=== PATIENT | male | born 1940 | race American Indian/Alaskan Native ===

== ENCOUNTER 2017-02-05 12:26 | Emergency (ER) | payer MEDICARE, BC ==
[2017-02-05] MEDS ORDERED: Albuterol/Ipratropium 3.0-0.5 MG/3 ML Neb Soln NEB ONE (12:31)
[2017-02-05] MEDS ORDERED: methylPREDNISolone Sodium Succinate 125 MG/2 ML SDV IVPUSH ONE (12:31)
[2017-02-05] MEDS ORDERED: Sodium Chloride 0.9% 10 ML Syringe FLUSH PRN (12:31)
[2017-02-05 12:34] VITALS: BP 124/71
[2017-02-05] MEDS ORDERED: Piperacillin/Tazobactam 3.375 GM in Sodium Chloride 0.9% 100 ML IV ONE (13:06)
[2017-02-05] MEDS ORDERED: Sodium Chloride 0.9% 1,000 ML IV ONE (13:12)
[2017-02-05 13:13] LABS: BASE EXCESS ARTERIAL -1 mmol/L ((-2)-(+3)); O2 DELIVERY DEVICE NASAL CANNULA; O2 SATURATION ARTERIAL 74 % (95-100); PCO2 ARTERIAL 31 mmHg (35-45)
[2017-02-05 13:15] LABS: O2 FLOW RATE 4; PO2 ARTERIAL 41 mmHg (70-100)
--- NOTE | 2017-02-05 14:05 | EDM.PDOC ---
Scribed by Zeenat Wilcox 02/05/17 [id number] for Ash Santamaria MD ED HPI GENERAL MEDICAL PROBLEM - General Chief Complaint: Respiratory Problem Stated Complaint: [id number] SOB Time Seen by Provider: 02/05/17 12:28 Source of Information: Reports: Patient, RN, RN Notes Reviewed History Limitations: Reports: No Limitations - History of Present Illness INITIAL COMMENTS - FREE TEXT/NARRATIVE: Arrives by POV with complaint of increasing shortness of breath that began last evening. Used a nebulizer treatment last night and one again this morning, but continued to worsen. Family members assisting him report that the patient felt very feverish but they did not have a thermometer. Patient denies any pain. 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 Location: Reports: Chest Quality: Reports: Ache Severity: Severe Improves with: Reports: None Worsens with: Reports: None Associated Symptoms: Reports: No Other Symptoms - Related Data Allergies Allergy/AdvReac Type Severity Reaction Status Date / Time No Known Allergies Allergy Verified 02/05/17 12:35 Home Meds: Home Meds Fluticasone/Salmeterol [Advair Diskus 250-50] 1 inh INH BID 02/05/17 [History] Pantoprazole [ProTONIX] 1 tab PO DAILY 02/05/17 [History] Past Medical History Respiratory History: Reports: Pulmonary Fibrosis, Other (See Below) (chronic respiratory failure, 02 dependent.) Social & Family History - Family History Family Medical History: Noncontributory ED ROS GENERAL - Review of Systems Review Of Systems: ROS reveals no pertinent complaints other than HPI. ED EXAM, GENERAL - Physical Exam Exam: See Below Exam Limited By: No Limitations General Appearance: Other (chronically ill appearing, obese, mild respiratory distress. ) Eye Exam: Bilateral Eye: Normal Inspection Ears: Normal External Exam, Normal Canal, Hearing Grossly Normal, Normal TMs Nose: Normal Inspection, Normal Mucosa, No Blood Throat/Mouth: Normal Inspection, Normal Lips, Normal Teeth, Normal Gums, Normal Oropharynx, Normal Voice, No Airway Compromise Head: Atraumatic, Normocephalic Neck: Normal Inspection, Supple, Non-Tender, Full Range of Motion Respiratory/Chest: Decreased Breath Sounds (in bilateral lung jones. Course crackles throughout. ) Cardiovascular: Regular Rate, Rhythm GI/Abdominal: Other (benign obese) (Male) Exam: Deferred Rectal (Males) Exam: Deferred Back Exam: Normal Inspection, Full Range of Motion, NT Extremities: Normal Inspection, Normal Range of Motion, Non-Tender, Normal Capillary Refill, No Pedal Edema Neurological: Alert, Oriented, CN II-XII Intact, Normal Cognition, Normal Gait, Normal Reflexes, No Motor/Sensory Deficits Psychiatric: Anxious Skin Exam: Warm, Dry, Intact, Normal Color, No Rash EKG INTERPRETATION EKG Date: 02/05/17 Time: 13:27 Rhythm: Other (sinus tachycardia) Rate (Beats/Min): 122 [place]: Normal P-Wave: Present QRS: Normal ST-T: Normal QT: Normal Course - Vital Signs Last Recorded V/S: Last Vital Signs Temp 37.6 C 02/05/17 12:32 Pulse 136 H 02/05/17 12:32 Resp 58 H 02/05/17 12:32 BP 124/71 02/05/17 12:32 Pulse Ox 47 L 02/05/17 12:32 - Orders/Labs/Meds Orders: Active Orders 24 hr Category Date Time Status EKG 12 Lead [EKG Documentation Completion] [RC] STAT Care 02/05/17 13:13 Active Overnight Pulse Oximetry [RC] Click to Edit Care 02/05/17 12:32 Active Peripheral IV Care [RC] . DIRECTED Care 02/05/17 12:32 Active RT Aerosol Therapy [RC] ASDIRECTED Care 02/05/17 12:31 Active CULTURE BLOOD [BC] Stat Lab 02/05/17 12:35 Received CULTURE BLOOD [BC] Stat Lab 02/05/17 13:18 Received Sodium Chloride 0.9% [Normal Saline] 1,000 ml Med 02/05/17 13:12 Active IV .BOLUS Sodium Chloride 0.9% [Saline Flush] Med 02/05/17 12:31 Active 10 ml FLUSH ASDIRECTED PRN Blood Culture x2 Reflex Set [OM.PC] Stat Oth 02/05/17 12:31 Ordered Peripheral IV Insertion Adult [OM.PC] Stat Oth 02/05/17 12:31 Ordered Pulse Oximetry Continuous Monitoring [OM.PC] Routine Oth 02/05/17 12:32 Ordered RT Supplemental Oxygen Titration [RESPCARE] Stat Oth 02/05/17 12:32 Active Medication Orders Sodium Chloride (Normal Saline) 1,000 mls @ 999 mls/hr IV .BOLUS ONE Stop: 02/05/17 14:12 Last Admin: 02/05/17 13:23 Dose: 999 mls/hr Sodium Chloride (Saline Flush) 10 ml FLUSH ASDIRECTED PRN PRN Reason: Keep Vein Open Last Admin: 02/05/17 12:42 Dose: 10 ml Labs: Laboratory Tests 02/05/17 02/05/17 02/05/17 Range/Units 12:35 12:35 12:35 WBC 16.5 H (5.0-10.0) 10^3/uL RBC 4.57 L (4.6-6.2) 10^6/uL Hgb 13.9 L (14.0-18.0) g/dL Hct 43.4 (40.0-54.0) % MCV 95.0 (80-100) fL MCH 30.4 (27.0-34.0) pg MCHC 32.0 L (33.0-35.0) g/dL Plt Count 280 (150-450) 10^3/uL Neut % (Auto) 80.4 H (42.2-75.2) % Lymph % (Auto) 15.5 L (20.5-50.1) % [place] % (Auto) 2.9 (2-8) % Eos % (Auto) 0.8 L (1.0-3.0) % Baso % (Auto) 0.4 (0.0-1.0) % Add Manual Diff Yes Neutrophils % (Manual) 75 % Band Neutrophils % 6 % Lymphocytes % (Manual) 16 % Monocytes % (Manual) 3 % ABG pH (7.35-7.45) ABG pCO2 (35-45) mmHg ABG pO2 (70-100) mmHg ABG HCO3 (22-26) mmol/L ABG O2 Saturation (95-100) % ABG Base Excess ((-2)-(+3)) mmol/L O2 Delivery Device Oxygen Flow Rate Sodium 134 L (135-145) mmol/L Potassium 5.1 H (3.6-5.0) mmol/L Chloride 99 L (101-111) mmol/L Carbon Dioxide 22.0 (21.0-31.0) mmol/L Anion Gap 18.1 BUN 39 H (7-18) mg/dL Creatinine 1.9 H (0.6-1.3) mg/dL Est Cr Clr Drug Dosing 30.78 mL/min Estimated GFR (MDRD) 35 BUN/Creatinine Ratio 20.52 Glucose 121 H (74-105) mg/dL Lactic Acid 2.9 H (0.5-2.2) mmol/L Calcium 9.5 (8.4-10.2) mg/dl Total Bilirubin 1.3 H (0.2-1.0) mg/dL AST 44 H (10-42) IU/L ALT 37 (10-60) IU/L Alkaline Phosphatase 101 (42-121) IU/L Troponin I 0.03 H* (0.00-0.02) ng/ml B-Natriuretic Peptide 49 (0-100) pg/ml Total Protein 7.0 (6.7-8.2) g/dl Albumin 3.0 L (3.2-5.5) g/dl Globulin 4.0 Albumin/Globulin Ratio 0.75 09//17 Range/Units 12:48 WBC (5.0-10.0) 10^3/uL RBC (4.6-6.2) 10^6/uL Hgb (14.0-18.0) g/dL Hct (40.0-54.0) % MCV (80-100) fL MCH (27.0-34.0) pg MCHC (33.0-35.0) g/dL Plt Count (150-450) 10^3/uL Neut % (Auto) (42.2-75.2) % Lymph % (Auto) (20.5-50.1) % [place] % (Auto) (2-8) % Eos % (Auto) (1.0-3.0) % Baso % (Auto) (0.0-1.0) % Add Manual Diff Neutrophils % (Manual) % Band Neutrophils % % Lymphocytes % (Manual) % Monocytes % (Manual) % ABG pH 7.46 H (7.35-7.45) ABG pCO2 31 L (35-45) mmHg ABG pO2 41 L* (70-100) mmHg ABG HCO3 22.0 (22-26) mmol/L ABG O2 Saturation 74 L (95-100) % ABG Base Excess -1 ((-2)-(+3)) mmol/L O2 Delivery Device Nasal cannula Oxygen Flow Rate 4 Sodium (135-145) mmol/L Potassium (3.6-5.0) mmol/L Chloride (101-111) mmol/L Carbon Dioxide (21.0-31.0) mmol/L Anion Gap BUN (7-18) mg/dL Creatinine (0.6-1.3) mg/dL Est Cr Clr Drug Dosing mL/min Estimated GFR (MDRD) BUN/Creatinine Ratio Glucose (74-105) mg/dL Lactic Acid (0.5-2.2) mmol/L Calcium (8.4-10.2) mg/dl Total Bilirubin (0.2-1.0) mg/dL AST (10-42) IU/L ALT (10-60) IU/L Alkaline Phosphatase (42-121) IU/L Troponin I (0.00-0.02) ng/ml B-Natriuretic Peptide (0-100) pg/ml Total Protein (6.7-8.2) g/dl Albumin (3.2-5.5) g/dl Globulin Albumin/Globulin Ratio Meds: Medications Generic Name Dose Route Start Last Admin Trade Name Freq PRN Reason Stop Dose Admin Sodium Chloride 1,000 mls @ 999 mls/hr 02/05/17 13:12 02/05/17 13:23 Normal Saline IV 02/05/17 14:12 999 mls/hr .BOLUS ONE Administration Sodium Chloride 10 ml 02/05/17 12:31 02/05/17 12:42 Saline Flush FLUSH 10 ml ASDIRECTED PRN Administration Keep Vein Open Discontinued Medications Generic Name Dose Route Start Last Admin Trade Name Freq PRN Reason Stop Dose Admin Albuterol/Ipratropium 3 ml 02/05/17 12:31 02/05/17 12:42 Duoneb 3.0-0.5 Mg/3 Ml NEB 02/05/17 12:32 3 ml ONETIME ONE Administration Piperacillin Sod/Tazobactam 100 mls @ 200 mls/hr 02/05/17 13:06 02/05/17 13: 23 Sod 3.375 gm/ Sodium Chloride IV 02/05/17 13:35 200 mls/hr ONETIME ONE Administration Methylprednisolone Sodium Succinate 125 mg 02/05/17 12:31 02/05/17 12:42 Solu-Medrol IVPUSH 02/05/17 12:32 125 mg ONETIME ONE Administration - Radiology Interpretation Free Text/Narrative:: Chest x-ray: Significant bilateral infiltrates, probably interstitial. Right hilar mass not excludable. See rad report. Departure - Departure Time of Disposition: 13:47 Disposition: DC/Tfer to [facility] 02 Condition: Serious Clinical Impression: Pulmonary fibrosis Pneumonia Qualifiers: Pneumonia type: due to unspecified organism Laterality: bilateral Lung location : unspecified part of lung Qualified Code(s): J18.9 - Pneumonia, unspecified organism Acute and chronic respiratory failure Qualifiers: Respiratory failure complication: hypoxia Qualified Code(s): J96.21 - Acute and chronic respiratory failure with hypoxia - Discharge Information Forms: ED Department Discharge, Interfacility Transfer EMTALA - My Orders Last 24 Hours: My Active Orders 02/05/17 12:31 RT Aerosol Therapy [RC] ASDIRECTED Sodium Chloride 0.9% [Saline Flush] 10 ml FLUSH ASDIRECTED PRN Blood Culture x2 Reflex Set [OM.PC] Stat Peripheral IV Insertion Adult [OM.PC] Stat 02/05/17 12:32 Overnight Pulse Oximetry [RC] Click to Edit Peripheral IV Care [RC] . DIRECTED Pulse Oximetry Continuous Monitoring [OM.PC] Routine RT Supplemental Oxygen Titration [RESPCARE] Stat 02/05/17 12:35 CULTURE BLOOD [BC] Stat 02/05/17 13:12 Sodium Chloride 0.9% [Normal Saline] 1,000 ml IV .BOLUS 02/05/17 13:13 EKG 12 Lead [EKG Documentation Completion] [RC] STAT 02/05/17 13:18 CULTURE BLOOD [BC] Stat - Assessment/Plan Last 24 Hours: My Active Orders 02/05/17 12:31 RT Aerosol Therapy [RC] ASDIRECTED Sodium Chloride 0.9% [Saline Flush] 10 ml FLUSH ASDIRECTED PRN Blood Culture x2 Reflex Set [OM.PC] Stat Peripheral IV Insertion Adult [OM.PC] Stat 02/05/17 12:32 Overnight Pulse Oximetry [RC] Click to Edit Peripheral IV Care [RC] . DIRECTED Pulse Oximetry Continuous Monitoring [OM.PC] Routine RT Supplemental Oxygen Titration [RESPCARE] Stat 09/03/17 12:35 CULTURE BLOOD [BC] Stat 02/05/17 13:12 Sodium Chloride 0.9% [Normal Saline] 1,000 ml IV .BOLUS 02/05/17 13:13 EKG 12 Lead [EKG Documentation Completion] [RC] STAT 02/05/17 13:18 CULTURE BLOOD [BC] Stat I have read and agree with the documentation that has been completed regarding this visit. By signing this record, I attest that the documentation was completed in my physical presence and is an accurate record of the encounter.
--- NOTE | 2017-02-27 09:45 | EKG ---
02/05/2017- MANPREET SANTIZO - This is a 12-lead standard EKG showing normal sinus tachycardia with a ventricular rate of 122 beats per minute. Normal SC interval and QRS duration. Normal axis. No significant ST-T changes. [facility] /[id number]
== END 2017-02-05 14:47 ==
LOC: DL.ED 12:26
DX: J96.21 Acute and chronic respiratory failure with hypoxia (principal); J84.10 Pulmonary fibrosis, unspecified; J18.9 Pneumonia, unspecified organism; Z79.899 Other long term (current) drug therapy
CPT/HCPCS: 36415; 36600; 71010; 80053; 82803; 83605; 83880; 84484; 85025; 87040; 93005; 96365; 96375; 99285; J2543; J2930; J7030; J7050; 93010; 99284